=== PATIENT | female | born 1965 | race Caucasian/White ===

== ENCOUNTER 2018-05-09 19:08 | Emergency (ER) | payer SELFPAY ==
[~2018-05-09] VITALS: Ht 154.9 cm; Wt 78.4 kg
[2018-05-09 19:29] VITALS: BP 154/58
== END 2018-05-09 23:30 | disposition left against medical advice (07) ==
LOC: ER 19:08
DX: Z53.21 Procedure and treatment not carried out due to patient leaving prior to being seen by health care provider (principal)

== ENCOUNTER 2022-08-13 13:18 | Emergency (ER) | payer MEDICAID ==
[~2022-08-13] VITALS: Ht 162.6 cm; Wt 82.0 kg
[2022-08-13 13:32] VITALS: BP 177/77
[2022-08-13] MEDS ORDERED: SULF1TAB48 MT (15:41)
[2022-08-13] MEDS ORDERED: CEPH500C2 MT (15:41)
[2022-08-13] MEDS ORDERED: BACITRACIN ZINC OINT UDPKT TOP NR (15:45)
[2022-08-13] MEDS ORDERED: CEPHALEXIN 250MG CAPSULE PO ONE (15:45)
[2022-08-13] MEDS ORDERED: SULFAMETHOXAZOLE/TRIMETHOPRIM 800/160MG TABLET PO ONE (15:45)
== END 2022-08-13 16:09 | disposition home or self-care (01) ==
LOC: ER 14:38
DX: S80.821A Blister (nonthermal), right lower leg, initial encounter (principal); X58.XXXA Exposure to other specified factors, initial encounter; Y93.89 Activity, other specified; Y92.89 Other specified places as the place of occurrence of the external cause; Y99.8 Other external cause status; M79.89 Other specified soft tissue disorders
CPT/HCPCS: 99284